=== PATIENT | male | born 1965 | race African-American/Black ===

== ENCOUNTER → 2017-09-02 | Outpatient (CLI) | payer MEDICARE ==
[2014-10-23 20:07] VITALS: BP 187/104
[~2017-09-02] MED LIST: ALPR0.254 PO; AMLO10TA2 PO; HYDR50TA6 PO; OMEG1CAP2 PO; POTA20TA12 PO; RABE20TA18 PO
--- NOTE | 2017-09-02 10:20 | CARD ---
APPROVED REPORT EXAM: Two-dimensional and M-mode echocardiogram with Doppler and color Doppler. Other Information Quality : Technically Limited Technically limited study due to body habitus. INDICATION Dizziness and Vertigo 2D DIMENSIONS RVDd3.3 (2.9-3.5cm)Left Atrium(2D)3.8 (1.6-4.0cm) IVSd1.0 (0.7-1.1cm)Aortic Root(2D)3.8 (2.0-3.7cm) LVOT Diameter2.7 (1.8-2.4cm)PWd1.1 (0.7-1.1cm) FS (%) 24.7 %SV137.9 ml LVEF(%)47.5 (>50%) Aortic Valve AoV Peak Jaquan.105.7cm/sAoV VTI16.6cm AO Peak GR.4.5mmHgLVOT Peak Jaquan.65.9cm/s AO Mean GR.3mmHgAVA (VMAX)3.68cm2 RACHEL (VTI)4.70cm2 Mitral Valve MV E Rndjapag34.9cm/sMV DECEL [id number] MV A Kfsrblty20.9cm/sE/A Ratio0.7 Tricuspid Valve TR P. Zlubktku406rg/sTR Peak Gr.11mmHg LEFT VENTRICLE The left ventricle is normal size. There is normal left ventricular wall thickness. Mild left ventric ular systolic dysfunction. The Ejection Fraction is 45-50%. There is normal LV segmental wall motion. Transmitral Doppler flow pattern is Grade I-abnormal relaxation pattern. RIGHT VENTRICLE The right ventricle is normal size. The right ventricular systolic function is normal. ATRIA The left atrium size is normal. The right atrium size is normal. The interatrial septum is intact wit h no evidence for an atrial septal defect or patent foramen ovale as noted on 2-D or Doppler imaging. AORTIC VALVE The aortic valve is not well visualized but appears to be functioning normally by Doppler interrogati on. Doppler and Color Flow revealed no significant aortic regurgitation. There is no significant aort ic valvular stenosis. MITRAL VALVE The mitral valve is normal in structure and function. There is no evidence of mitral valve prolapse. There is no mitral valve stenosis. Doppler and Color Flow revealed no mitral valve regurgitation note d. TRICUSPID VALVE The tricuspid valve is normal in structure and function. Doppler and Color Flow revealed no tricuspid valve regurgitation noted. There is no tricuspid valve stenosis. PULMONIC VALVE The pulmonic valve is not well visualized. GREAT VESSELS The aortic root is mildly enlarged. The ascending aorta is not well seen. The IVC was not visualized. PERICARDIAL EFFUSION There is no evidence of significant pericardial effusion. Critical Notification Critical Value: No <Conclusion> Technically difficult study. Mild left ventricular systolic dysfunction. The Ejection Fraction is 45-50%. There is normal LV segmental wall motion. Transmitral Doppler flow pattern is Grade I-abnormal relaxation pattern. There is no evidence of significant pericardial effusion.
--- NOTE | 2017-09-02 13:04 | RAD ---
APPROVED REPORT Patient Location: OUT-PATIENT Laterality:Bilateral Indications Dizziness and Vertigo Doppler Spectral Velocity Analysis Right Left pCCA 91/20 cm/spCCA 85/20 cm/s mCCA 82/23 cm/smCCA 76/22 cm/s dCCA 74/21 cm/sdCCA 66/24 cm/s Bulb 57/12 cm/sBulb 50/20 cm/s ECA 79/ cm/sECA 67/ cm/s pICA 64/22 cm/spICA 66/29 cm/s Lucie 73/27 cm/smICA 78/36 cm/s dICA 72/30 cm/sdICA 52/23 cm/s Vert. 34/ cm/sVert. 39/ cm/s Subcl. 87/ cm/sSubcl. 137/ cm/s ICA/CCA 0.80ICA/CCA 0.92 Findings Jalloh scale images demonstrate mild intimal hyperplasia and minimal after his chronic plaque in the bi lateral common carotid and internal carotid vessels. No high-grade disease is identified. Color Doppler and spectral images do not demonstrate any evidence of elevated velocities. Grossly no significant stenosis is noted. Vertebral velocities are antegrade. Normal ICA to CCA ratios. Critical Notification Critical Value: No <Conclusion> 1. No evidence of carotid arterial disease.
== END | disposition home or self-care (01) ==
LOC: ECHO 08:07
PROVIDERS: ATTEND Internal Medicine Cardiovascular Disease
DX: I77.3 Arterial fibromuscular dysplasia (principal)
CPT/HCPCS: 93306; 93880

== ENCOUNTER → 2017-09-11 | Outpatient (CLI) | payer MEDICARE ==
[2014-10-23 20:07] VITALS: BP 187/104
--- NOTE | 2017-09-12 08:15 | KCIC ---
INDICATION: Low back pain. Surgery in 2015 without any relief of symptoms. Chronic back and leg pain. TECHNIQUE: Sagittal T1, sagittal T2, sagittal STIR, axial T1, and axial T2 sequences are provided. No comparison is available. FINDINGS: There is hardware artifact from pedicle screw and nemo instrumentation which extends from L3 to L5. There probably is partial laminectomy on the right at L3-L4 and L4-L5 and on the left at L4-L5. There is straightening of lumbar lordosis but no subluxation. There is endplate irregularity which appears degenerative. Bone cage devices result in hardware artifact at L3-L4 and L4-L5. There is no worrisome marrow lesion. There is a T12 hemangioma. There is disc desiccation. There is subcutaneous edema. The conus medullaris is only partially included, terminates at T12. Probable renal cysts are noted. The numbering system assumes 5 lumbar type vertebral bodies. Findings by individual level are as follows: T12-L1: There is a minimal disc bulge and facet hypertrophy without canal or foraminal compromise. L1-L2: There is a diffuse disc bulge. There is mild facet hypertrophy. There is prominent epidural fat. Thecal sac is compressed down to midline AP diameter of 9 mm, mostly secondary to the epidural lipomatosis. There is mild to moderate left and mild right foraminal narrowing. L2-L3: There is a diffuse disc bulge. There is moderate facet and ligamentum flavum hypertrophy. There is prominent epidural fat. Midline AP diameter of the thecal sac is narrowed to 8 mm. Foraminal narrowing appears mild on the right and minimal on the left. Lateral recess narrowing is mild on the left. L3-L4: There is endplate irregularity and facet hypertrophy. There is no canal stenosis post decompression, midline AP diameter of the thecal sac 11 mm. There is minimal foraminal narrowing. L4-L5: There is endplate irregularity and facet hypertrophy without canal stenosis, midline AP diameter of the thecal sac 12 mm. There is moderate left and mild right foraminal narrowing. L5-S1: Minimal disc bulge and facet hypertrophy are noted with mild foraminal narrowing. IMPRESSION: 1. Degenerative disc disease and facet hypertrophy are noted throughout the lumbar spine. In addition, there is epidural lipomatosis in the upper lumbar spine. These findings compress the thecal sac at L1-L2 and L2-L3. 2. Postsurgical changes result in hardware artifact from pedicle screw and nemo instrumentation along with interbody fusion of L3-L5. Electronically signed by: Steve Woods MD (09/12/2017 8:11 AM) [facility]
== END | disposition home or self-care (01) ==
LOC: KCIC MRI 16:42
PROVIDERS: ATTEND Internal Medicine
DX: M51.36 Other intervertebral disc degeneration, lumbar region (principal); E88.2 Lipomatosis, not elsewhere classified; Z98.890 Other specified postprocedural states
CPT/HCPCS: 72148

== ENCOUNTER → 2017-10-23 | Outpatient (CLI) | payer MEDICARE ==
[2014-10-23 20:07] VITALS: BP 187/104
[~2017-10-23] MED LIST changes: +CARV6.252 PO; +GEMF600T3 PO; +IOHEXOL 180 MG/ML 10 ML VIAL. ONE; +OLME1TAB25 PO; +OMEG1CAP38 PO; +PRAV40TA2 PO; +methylPREDNISolone ACETATE 40 MG/ML VIAL. ONE; +methylPREDNISolone ACETATE 80 MG/ML VIAL. ONE
--- NOTE | 2017-10-24 01:58 | PAIN ---
DATE OF SERVICE: 10/23/2017 PROGRESS NOTE FOR PAIN CLINIC DIAGNOSES: Lumbar radiculopathy with lumbar degenerative disk disease, lumbar spinal stenosis and post-lumbar laminectomy syndrome. HISTORY OF PRESENT ILLNESS: The patient is a 52-year-old male who returns for followup, last seen on 08/18/2014 who underwent lumbar epidural steroid injection. He has had surgery since that time with L3 to L5 fusion with posterior instrumentation with new MRI scan done on 09/11/2017 showing degenerative disk disease and facet hypertrophy throughout with additional lipomatosis in the upper lumbar spine compressing the thecal sac at L1-L2 and L2-L3, postsurgical changes resulting in hardware artifact from pedicle screw and nemo instrumentation along with interbody fusion of L3 to L5. The patient reports increasing pain in the base of the low back into the posterior gluteus, posterior thighs, posterior calf, posterior ankles and into the feet bilaterally, some in the lower legs anteriorly, but mostly posteriorly and somewhat on the right greater than left. The patient also has some knee pain in the right, which causes his pain in his leg to be more pronounced. The patient reports no loss of motor function, but significant fatigability in the right lower extremity with walking, standing and change in positions. The patient reports pain is constant, sharp, stabbing, throbbing with tingling and numbness, cramping and cold sensation in the feet. The patient reports it gradually had been increased, did not result with any specific injury or accident that he has had recently. The patient reports he has done some physical therapy, but it has been about 2 years. He has been doing some exercises on his own, but nothing formal recently. No other treatments or other modalities for the pain. The patient reports not taking any medications for it. Reports it wakes him from sleep about once a night when he sleeps more on his right side. Occasionally he will use a cane with him, but he does not normally use any assistive devices to ambulate. The patient reports it does affect his bowel and bladder and that he has increased frequency in the bladder, but no loss of continence of either. The patient reports a disability rate from 0-10, 10 being the worst, it is a 10 with family home responsibilities, recreation and social activity, 5 with sexual behavior, 2 with self care and 3 with life support activities. PAST MEDICAL HISTORY: Significant for hypertension and arthritis. PAST SURGICAL HISTORY: Previous lumbar surgery. No other surgeries besides that on his back. CURRENT MEDICATIONS: Well documented on the patient's chart. ALLERGIES: He has no known drug allergies. FAMILY HISTORY: Significant for heart disease and cancer. SOCIAL HISTORY: The patient does not smoke, drinks about 3 alcoholic drinks a week on average, is and lives with his spouse, lives at home and lives locally in [place], [place]. REVIEW OF SYSTEMS: The patient's review of systems is positive for those items mentioned in the history of present illness. All systems reviewed and otherwise negative. It is complete, full and well documented on the patient's chart. PHYSICAL EXAMINATION: VITAL SIGNS: Today, the patient's blood pressure is 176/102, pulse 80, respirations 18, temperature 98.6 degrees Fahrenheit. Height is 6 feet 6 inches and weight is 383 pounds. GENERAL: He is awake, alert, oriented, appropriate and very pleasant demeanor. HEENT: Head shows normocephalic and atraumatic. Extraocular movements are intact, symmetrical. Oral cavity: Mucous membranes moist and pink. Dentition is intact. NECK: Shows anterior throat supple without palpable lymphadenopathy noted. Swallow reflex is symmetrical. CHEST: Shows normal on inspection. Breath sounds are clear to auscultation bilaterally. HEART: Shows S1 and S2 clear. No murmurs auscultated. ABDOMEN: Soft, nontender and nondistended. No palpable organomegaly is noted. No rebound or guarding demonstrated. MUSCULOSKELETAL: Back shows spine grossly in the midline. Well-healed surgical scarring x 3 in the lumbar distribution with some flattening of the lumbar lordotic curvature. Lumbar paraspinous muscle shows symmetrical on inspection with palpation, shows moderate tenderness with palpation bilaterally, but only diffusely throughout the upper, middle and lower distribution of the paraspinous muscles. The patient shows no radiation of pain and no trigger points. The patient shows good rotational motion both laterally as well as extension and flexion without exacerbation of pain. Lower extremities show deep tendon reflexes 1+ in the patellar and tendo calcaneus tendons. Motor exam is approximately 4 on a scale of 5 with right dorsiflexion, extension, 5/5 on the left, quads and hamstring flexion 4/5 and equal and symmetrical bilaterally. Peripheral pulses are 1+ posterior tibial and dorsalis pedis pulses. No peripheral edema is noted. No clubbing or cyanosis. Options were discussed with the patient. The patient's old chart was reviewed. His current medication regimen updated. Current review of systems updated today as noted. We will proceed with a caudal approach epidural steroid injection today with fluoroscopic guidance. Risks were again discussed including, but not limited to bleeding, infection, possibility of epidural hematoma, subsequent neurologic compromise, dural puncture, headaches, spinal cord and/or nerve damage, side effects of steroid medication and poor results regarding pain control. The patient understands and wished to proceed. The patient will return to the clinic in approximately 2 weeks for followup. He was counseled as to return appointment, activity level and side effects to be aware of. DIAGNOSIS: Lumbar radiculopathy with lumbar spinal stenosis, degenerative disk disease and post-lumbar laminectomy syndrome. PROCEDURE: Caudal approach epidural steroid injection using C-arm fluoroscopic guidance under sterile prep and drape using local anesthetic MEDICATIONS INJECTED: A total of 120 mg Depo-Medrol plus 10 mL preservative free normal saline and 2 mL of Isovue contrast. CONDITION AT DISCHARGE: Stable. The patient tolerated the procedure well and had no complications. KIRK OLSEN MD DR: JOANNE/jorje JOB#: [id number] / [id number]
== END | disposition home or self-care (01) ==
LOC: PNCL 12:48
PROVIDERS: ATTEND Anesthesiology
DX: M51.16 Intervertebral disc disorders with radiculopathy, lumbar region (principal); M48.061 Spinal stenosis, lumbar region without neurogenic claudication; M96.1 Postlaminectomy syndrome, not elsewhere classified; I10 Essential (primary) hypertension; M19.90 Unspecified osteoarthritis, unspecified site; F10.99 Alcohol use, unspecified with unspecified alcohol-induced disorder
CPT/HCPCS: 62323; J1030; J1040

== ENCOUNTER → 2017-11-04 | Outpatient (CLI) | payer MEDICARE ==
[2014-10-23 20:07] VITALS: BP 187/104
--- NOTE | 2017-11-04 19:47 | PAIN ---
DATE OF SERVICE: 11/04/2017 DIAGNOSES: Lumbar radiculopathy with lumbar degenerative disk disease, spinal stenosis and post-lumbar laminectomy syndrome. HISTORY OF PRESENT ILLNESS: The patient is a 52-year-old male who returns for a followup status post caudal epidural steroid injection x 1. The patient reports about 25% improvement overall in the low back and bilateral lower extremity. Still has some significant pain in the back and lower extremities, radiating from the posterior gluteus, posterior thighs, calves, into the ankles bilaterally with a tingling sensation. It is constant, aching, sharp, dull, tight, also shooting, better though. He has been increasing his activity with greater ease and comfort after his last injection over the past few weeks. The patient reports that he is sleeping a little better at night, still awakens him from sleep when he lies on his right side more than his left. The patient reports his pain is a 6 on a scale of 10 at its average, at its worst and at its least and is a 6 on a scale of 10 today. The patient reports no new motor or sensory deficits, no new bowel or bladder incontinence or other complaints. PHYSICAL EXAMINATION: VITAL SIGNS: Today, the patient's blood pressure is 165/115, pulse 87, respirations are 18, temperature is 98.2 degrees Fahrenheit, height is 6 feet 6 inches, weight is 386 pounds. GENERAL: The patient is awake, alert, oriented, appropriate, has a very pleasant demeanor. HEENT: Shows normocephalic, atraumatic. Extraocular movements are intact, symmetrical. Oral cavity shows mucous membranes moist and pink. Dentition is intact. NECK: Shows anterior throat supple without palpable lymphadenopathy noted. Swallow reflex is symmetrical. CHEST: Shows normal with inspection. Breath sounds are clear to auscultation bilaterally. HEART: Shows S1, S2 clear. No murmurs auscultated. ABDOMEN: Soft, obese, nontender, nondistended. No palpable organomegaly is noted. No rebound or guarding demonstrated. MUSCULOSKELETAL: Back shows spine grossly in the midline. Well-healed surgical scarring is noted x 3 in the lumbar distribution. Lumbar flattening of the lordotic curvature is noted. Lumbar paraspinous muscle shows some moderate tenderness in the lower lumbar distribution on palpation, but without radiation. Lower extremities show deep tendon reflexes 1+ in the patellar and tendo-calcaneus tendons and are equal. Motor exam is approximately 4 on a scale of 5 on the right and 5/5 on the left, but intact and strong. Peripheral pulses are 1+ posterior tibia. No peripheral edema is noted bilaterally. PLAN: Options were discussed with the patient. The patient's old chart was reviewed as his current medication regimen and updated. Current review of systems updated today as well. We will proceed with a second in the series caudal approach epidural steroid injection today with fluoroscopic guidance. Risks were again discussed including, but not limited to bleeding, infection, possibility of epidural hematoma, subsequent neurological compromise, dural puncture, headaches, spinal cord and/or nerve damage, side effects of steroid medication and poor results regarding pain control. The patient understands and wished to proceed. The patient will return to the clinic in approximately 2 weeks for a followup, was counseled on his activity level and side effects to be aware of. DIAGNOSES: Lumbar radiculopathy with lumbar degenerative disk disease, lumbar spinal stenosis and post-lumbar laminectomy syndrome. PROCEDURE: Lumbar epidural steroid injection, caudal approach, using C-arm fluoroscopic guidance under sterile prep and drape using local anesthetic. MEDICATIONS INJECTED: A total of 120 mg of Depo-Medrol plus 10 mL of preservative-free normal saline and 2 mL of Isovue for contrast. CONDITION AT DISCHARGE: Stable. The patient tolerated the procedure well, had no complications. KIRK OLSEN MD DR: JOANNE/jorje JOB#: [id number] / [id number]
== END | disposition home or self-care (01) ==
LOC: PNCL 13:31
PROVIDERS: ATTEND Anesthesiology
DX: M51.16 Intervertebral disc disorders with radiculopathy, lumbar region (principal); M48.061 Spinal stenosis, lumbar region without neurogenic claudication; M96.1 Postlaminectomy syndrome, not elsewhere classified
CPT/HCPCS: 62323; J1030; J1040

== ENCOUNTER → 2017-11-20 | Outpatient (CLI) | payer MEDICARE ==
[~2017-11-20] MED LIST changes: -ALPR0.254 PO; -AMLO10TA2 PO; -CARV6.252 PO; -GEMF600T3 PO; -HYDR50TA6 PO; +IOHEXOL 180 MG/ML 10 ML VIAL.; -IOHEXOL 180 MG/ML 10 ML VIAL. ONE; -OLME1TAB25 PO; -OMEG1CAP2 PO; -OMEG1CAP38 PO; -POTA20TA12 PO; -PRAV40TA2 PO; -RABE20TA18 PO; +methylPREDNISolone ACETATE 40 MG/ML VIAL.; -methylPREDNISolone ACETATE 40 MG/ML VIAL. ONE; +methylPREDNISolone ACETATE 80 MG/ML VIAL.; -methylPREDNISolone ACETATE 80 MG/ML VIAL. ONE
== END | disposition home or self-care (01) ==
LOC: PNCL 11:25
DX: M51.16 Intervertebral disc disorders with radiculopathy, lumbar region (principal); M48.061 Spinal stenosis, lumbar region without neurogenic claudication; M96.1 Postlaminectomy syndrome, not elsewhere classified
CPT/HCPCS: 62323; J1030; J1040

== ENCOUNTER → 2018-04-28 | Day surgery (SDC) | payer MEDICARE ==
[~2018-04-28] MED LIST changes: +FAMOTIDINE 20 MG/2 ML VIAL; -IOHEXOL 180 MG/ML 10 ML VIAL.; +IV RINGERS,LACTATED 1000ML 1,000 ML IV; +LABETALOL 20 MG/4 ML DISP.SYRIN.; +LIDOCAINE 1% PF 2 ML VIAL. ID; +LIDOCAINE 2% PF Vial for OR 5 ML VIAL.; +MIDAZOLAM HCL/PF 2 MG/2 ML VIAL.; +MORPHINE SULFATE 4 MG/ML DISP.SYRIN. IV; +ONDANSETRON PF 4 MG/2 ML VIAL. IV; +PROCHLORPERAZINE 10 MG/2 ML VIAL. IV; +PROPOFOL 40 ML IV; +fentaNYL PF VIAL 100 MCG/2 ML VIAL IV; -methylPREDNISolone ACETATE 40 MG/ML VIAL.; -methylPREDNISolone ACETATE 80 MG/ML VIAL.
[2018-04-28] MEDS: IV RINGERS,LACTATED 1000ML 1,000 ML IV (08:18)
== END | disposition home or self-care (01) ==
LOC: ENDOS 07:29
DX: Z12.11 Encounter for screening for malignant neoplasm of colon (principal); K21.9 Gastro-esophageal reflux disease without esophagitis; E78.5 Hyperlipidemia, unspecified; I10 Essential (primary) hypertension; Z98.890 Other specified postprocedural states; F41.1 Generalized anxiety disorder; G47.33 Obstructive sleep apnea (adult) (pediatric); Z79.899 Other long term (current) drug therapy
CPT/HCPCS: 45378; G0105; J2250; J2704; J3490; S0028

== ENCOUNTER → 2018-10-21 | Outpatient (CLI) | payer MEDICARE ==
[2018-04-28 09:03] VITALS: BP 119/75
[~2018-10-21] MED LIST changes: +ALPR0.254 PO; +AMLO10TA6 PO; +CARV6.2511 PO; -FAMOTIDINE 20 MG/2 ML VIAL; +GEMF600T4 PO; +HYDR50TA6 PO; -IV RINGERS,LACTATED 1000ML 1,000 ML IV; -LABETALOL 20 MG/4 ML DISP.SYRIN.; -LIDOCAINE 1% PF 2 ML VIAL. ID; -LIDOCAINE 2% PF Vial for OR 5 ML VIAL.; -MIDAZOLAM HCL/PF 2 MG/2 ML VIAL.; -MORPHINE SULFATE 4 MG/ML DISP.SYRIN. IV; +OLME1TAB25 PO; +OMEG1CAP2 PO; +OMEG1CAP38 PO; -ONDANSETRON PF 4 MG/2 ML VIAL. IV; +POTA20TA12 PO; +PRAV40TA2 PO; -PROCHLORPERAZINE 10 MG/2 ML VIAL. IV; -PROPOFOL 40 ML IV; +RABE20TA18 PO; -fentaNYL PF VIAL 100 MCG/2 ML VIAL IV
--- NOTE | 2018-10-21 16:03 | CARD ---
MR#: [id number] Date of Study: 10/21/2018 Ordering Physician: PAGE JACKMAN, Referring Physician: PAGE JACKMAN, Tech: Liliane Morris CHERRIE APPROVED REPORT EXAM: Two-dimensional and M-mode echocardiogram with Doppler and color Doppler. Other Information Quality : Good INDICATION Hypertension/HCVD 2D DIMENSIONS RVDd3.9 (2.9-3.5cm)Left Atrium(2D)4.2 (1.6-4.0cm) IVSd1.7 (0.7-1.1cm)Aortic Root(2D)3.8 (2.0-3.7cm) LVDd5.5 (3.9-5.9cm)LVOT Diameter2.5 (1.8-2.4cm) PWd1.4 (0.7-1.1cm)LVDs4.0 (2.5-4.0cm) FS (%) 28.1 %SV80.9 ml LVEF(%)55.8 (>50%) Aortic Valve AoV Peak Jaquan.141.0cm/sAoV VTI25.7cm AO Peak GR.7.9mmHgLVOT Peak Jaquan.87.5cm/s LVOT VTI 20.86cmAO Mean GR.5mmHg RACHEL (VMAX)3.27bo3WFW (VTI)4.12cm2 Mitral Valve MV E Pzhdsejq17.9cm/sMV DECEL [id number] MV A Jzahnzvu24.4cm/sMV [id number] E/A Ratio0.7MVA (PHT)4.80cm2 TDI E/Lateral E'6.2E/Medial E'7.1 Tricuspid Valve TR P. Gpqeeifk710os/sRAP [id number] TR Peak Gr.98lbPvVJGB04oiJj Pulmonary Vein S1 Rxrmcqow51.7cm/sD2 Woxksurl56.7cm/s LEFT VENTRICLE The left ventricle is normal size. There is mild to moderate concentric left ventricular hypertrophy. The left ventricular systolic function is normal. The Ejection Fraction is 55-60%. There is normal L V segmental wall motion. Transmitral Doppler flow pattern is Grade I-abnormal relaxation pattern. RIGHT VENTRICLE The right ventricle is normal size. The right ventricular systolic function is normal. ATRIA The left atrium is mildly dilated. The right atrium size is normal. The interatrial septum is intact with no evidence for an atrial septal defect or patent foramen ovale as noted on 2-D or Doppler imagi ng. AORTIC VALVE The aortic valve is calcified but opens well. Doppler and Color Flow revealed no significant aortic r egurgitation. There is no significant aortic valvular stenosis. MITRAL VALVE The mitral valve is calcified but opens well. There is no evidence of mitral valve prolapse. There is no mitral valve stenosis. Doppler and Color Flow revealed no mitral valve regurgitation noted. TRICUSPID VALVE The tricuspid valve is normal in structure and function. Doppler and Color Flow revealed trace tricus pid regurgitation. The PA pressure was estimated at 29 mmHg. There is no tricuspid valve stenosis. PULMONIC VALVE The pulmonary valve is normal in structure and function. Doppler and Color Flow revealed trace pulmon ic valvular regurgitation. There is no pulmonic valvular stenosis. GREAT VESSELS The aortic root is mildly dilated. The ascending aorta is mildly dilated at 4.0 cm. The IVC is normal in size and collapses >50% with inspiration. PERICARDIAL EFFUSION There is no evidence of significant pericardial effusion. Critical Notification Critical Value: No <Conclusion> The left ventricular systolic function is normal. The Ejection Fraction is 55-60%. There is normal LV segmental wall motion. Transmitral Doppler flow pattern is Grade I-abnormal relaxation pattern. Trace tricuspid regurgitation. The PA pressure was estimated at 29 mmHg. The ascending aorta is mildly dilated at 4.0 cm. There is no evidence of significant pericardial effusion. Signed by : Alen Sandoval, Electronically Approved : 10/21/2018 16:02:16
== END | disposition home or self-care (01) ==
LOC: ECHO 13:35
PROVIDERS: ATTEND Internal Medicine Cardiovascular Disease
DX: I11.9 Hypertensive heart disease without heart failure (principal)
CPT/HCPCS: 93306

== ENCOUNTER → 2021-04-06 | Outpatient (CLI) | payer MEDICARE ==
[2019-12-31 11:00] VITALS: BP 120/70
[~2021-04-06] MED LIST changes: +AMLO-186 PO; +AMLO-187 PO; -AMLO10TA6 PO; +CARV25TA2 PO; +CYAN-25 PO; +ENOX40DI3 SQ; +GEMF600T20 PO; -GEMF600T4 PO; +HYDR-2145 PO; +HYDR-3164 PO; -HYDR50TA6 PO; +HYDR50TA9 PO; +ICOS1CAP PO; +OXYC1TAB19 PO; +PANT40TA77 PO; +SENN-22 PO; +TIZA4TAB2 PO
--- NOTE | 2021-04-06 14:20 | RAD ---
XR CHEST 2V History: Shortness of breath. Comparison: Chest x-ray 12/26/2019 Technique: PA and lateral chest radiographs. Findings: The lungs are adequately and symmectrically inflated. Redemonstrated multiple calcified parenchymal g ranuloma. No airspace consolidation, pleural effusion or pneumothorax. The cardiomediastinal silhoutt e and pulmonary vasculature are within normal limits. Degenerative changes of the lumbar spine with p rominent osteophytes. Soft tissues are unremarkable. Impression: 1. No acute cardiopulmonary process. Electronically signed by: Yony Shaffer MD (04/06/2021 2:18 PM) [facility]
== END ==
LOC: RAD 11:47
PROVIDERS: ATTEND Internal Medicine
DX: R06.02 Shortness of breath (principal)
CPT/HCPCS: 71046

== ENCOUNTER → 2021-08-16 | Outpatient (CLI) | payer MEDICARE ==
[2019-12-31 11:00] VITALS: BP 120/70
[~2021-08-16] MED LIST changes: +BARIUM SULFATE 60% 355 ML SUSP PO ONE; +SIMETHICONE/SOD BICARB/CITRIC ACID PACKET. PO ONE
[2021-08-16] MEDS: BARIUM SULFATE 340 GM SUSPENSION. PO ONE (14:23)
--- NOTE | 2021-08-16 16:56 | RAD ---
ESOPHAGRAM 08/13/2021. Reason for study: Epigastric abdominal pain. Comparison studies: None. Technique: Esophagram was performed utilizing double contrast upright examination, single contrast pr one examination, and cine evaluation of cervical esophageal swallow function. Findings: Evaluation limited by positioning. Barium swallow was performed without difficulty. There may be a small Zenker's diverticulum, although evaluation is limited by patient positioning. Esophageal peristalsis and motility were normal in upr ight position and delayed in supine position. No mucosal abnormalities. No gastroesophageal reflux or hiatal hernia. No esophageal diverticulum. Fundus of the stomach was unremarkable. Fluoroscopy time: 1.4 minutes Number of images: 10 IMPRESSION: Evaluation limited by positioning. Mild delayed motility in supine position. Normal motility in upright position. There may be a small Zenker's diverticulum, although evaluation is limited by patient positioning. Electronically signed by: Shelbie Quintero MD (08/16/2021 4:53 PM) [id number]
== END ==
LOC: RAD 13:57
PROVIDERS: ATTEND Physician Assistant
DX: R10.13 Epigastric pain (principal)
CPT/HCPCS: 74220

== ENCOUNTER → 2021-10-15 | Outpatient (CLI) | payer MEDICARE ==
[2019-12-31 11:00] VITALS: BP 120/70
[~2021-10-15] MED LIST changes: -BARIUM SULFATE 60% 355 ML SUSP PO ONE; -SIMETHICONE/SOD BICARB/CITRIC ACID PACKET. PO ONE; +TIZA-75 PO; -TIZA4TAB2 PO
--- NOTE | 2021-10-15 12:39 | RAD ---
Gastric Emptying Study 10/15/2021 Indication: Nausea, abdominal Procedure: Anterior and posterior projection static images are obtained over the stomach following or al administration of 2 mCi of 99 M technetium sulfur colloid in a solid meal .Time points include an immediate baseline, and 1, 2, 3, and 4 hours post ingestion. Findings: There is progressive emptying of the stomach on sequential images. Gastric emptying half ti me is 33 minutes. (normal is 66 +/- 22 minutes). Percentage retention at... One hour is 85% (normal 34.8-91%). Two hours 1% (normal 2.7-60%). Impression: Mildly rapid gastric emptying as indicated by a T1 half lower than the normal range. Consensus Recommendations for Gastric Emptying Scintigraphy: A Joint Report of the [place] Neurogast roenterology and Motility Society and the Society of Nuclear Medicine: J. Nucl. Med. Technol. January 23 vol. 36 no. 1 44-54 Normal gastric emptying study. Grading for severity of delayed GE based on the 4-h value: grade 1 (mild): 11?20% retention at 4 h grade 2 (moderate): 21?35% retention at 4 h grade 3 (severe): 36?50% retention at 4 h grade 4 (very severe): >50% retention at 4 h. Electronically signed by: Adrian Brian MD (10/15/2021 12:36 PM) [id number]
== END ==
LOC: NM 09:23
PROVIDERS: ATTEND Internal Medicine Gastroenterology
DX: R10.13 Epigastric pain (principal); R11.0 Nausea
CPT/HCPCS: 78264; A9541

== ENCOUNTER → 2021-12-28 | Outpatient (CLI) | payer MEDICARE ==
[2019-12-31 11:00] VITALS: BP 120/70
--- NOTE | 2021-12-28 09:19 | RAD ---
EXAM: ULTRASOUND ABDOMEN COMPLETE CLINICAL HISTORY: EPIGASTRIC PAIN COMPARISON: None available. TECHNIQUE: Ultrasound of the upper abdomen was performed. FINDINGS: The liver length measures 21.2 cm. There is a cystic structure measuring 2.8 cm identified in the rig ht lobe of the liver likely a cyst.The gallbladder is mildly distended. The common bile duct measures 6.3 mm in transverse dimension. The right kidney measures 14.1 x 6.6 x 7.3 cm. The left kidney. 14.3 x 6.3 x 7.2 cm. 2.5 cm cyst left kidney. The pancreas, aorta, IVC are not well-visualized due to bow el gas. The spleen is within normal limits of dimension. IMPRESSION: 1. Hepatomegaly with 2.8 cm cyst right lobe of the liver. 2. Mild distended gallbladder. 3. 2.5 cm left renal cyst. Electronically signed by: Hiram Ferrell MD (12/28/2021 9:16 AM) [id number]
== END ==
LOC: US 08:34
PROVIDERS: ATTEND Internal Medicine Gastroenterology
DX: R16.0 Hepatomegaly, not elsewhere classified (principal); N28.1 Cyst of kidney, acquired; K76.89 Other specified diseases of liver; K82.8 Other specified diseases of gallbladder
CPT/HCPCS: 76700